=== PATIENT | male | born 1985 | race Caucasian/White ===

== ENCOUNTER 2019-03-10 16:55 | Emergency (ER) | payer MEDICAID, OTHER, SELFPAY ==
[2019-03-10] MEDS ORDERED: Vibramycin 100 MG PO ONE (17:20)
[2019-03-10] MEDS ORDERED: Vibramycin 100 MG ONE (17:23)
--- NOTE | 2019-03-10 17:26 | ERPHSYRPT ---
- History of Present Illness Time Seen by Provider: 03/10/19 17:21 Source: patient Exam Limitations: no limitations Patient Subjective Stated Complaint: Pt states "I do not know if I have a dental infection or an infected sinus. My right side of my face is swollen." Triage Nursing Assessment: Pt presnted to the ed and placed in room 6. Pt ambulates with an upright steady gait, able to speak in clear full sentences. Pt in no apparent respiratory distress. Swelling noted to right cheek. pt teeth has several dental carries. Physician History: 33-year-old white male with history of hiradenitis arrives with complaint of swelling in her right maxillary area x3 days. He states that he feels like the swelling is improving but he feels like he is starting to run a temperature because he has chills at work. Has no vomiting. Patient does have a history of extremely poor dentition. Past medical history patient has had hiradinitis, history of C. difficile in the past. Past surgical history anterior cruciate ligament repair Social history occasional alcohol Timing/Duration: day(s) (3 days) Severity: moderate Modifying Factors: Improves With: nothing Associated Symptoms: chills, rash (right maxillary swelling), No nausea, No vomiting, No abdominal pain, No shortness of breath, No heartburn, No diaphoresis, No cough, No chest pain, No fever, No headaches, No loss of appetite, No malaise, No syncope, No seizure, No weakness Allergies/Adverse Reactions: No Known Drug Allergies Allergy (Verified 03/10/19 17:06) Hx Tetanus, Diphtheria Vaccination/Date Given: Yes Hx Influenza Vaccination/Date Given: No Hx Pneumococcal Vaccination/Date Given: No Immunizations Up to Date: Yes - Review of Systems Constitutional: Chills, No Fever Eyes: No Symptoms Ears, Nose, & Throat: No Symptoms, Mouth Pain (right maxillary swelling), Mouth Swelling (right maxillary swelling), No Ear Pain, No Ear Discharge, No Hearing Changes, No Tinnitus, No Nose Pain, No Nose Congestion, No Nose Discharge, No Sinus Drainage, No Throat Pain, No Throat Swelling, No Hoarse, No Painful Swallowing, No Snoring, No Stridor Respiratory: No Cough, No Dyspnea Cardiac: No Chest Pain, No Edema, No Syncope Abdominal/Gastrointestinal: No Abdominal Pain, No Nausea, No Vomiting, No Diarrhea Genitourinary Symptoms: No Dysuria Musculoskeletal: No Back Pain, No Neck Pain Skin: No Rash Neurological: No Dizziness, No Focal Weakness, No Sensory Changes Psychological: No Symptoms Endocrine: No Symptoms All Other Systems: Reviewed and Negative - Past Medical History Pertinent Past Medical History: Yes Neurological History: No Pertinent History ENT History: No Pertinent History Cardiac History: No Pertinent History Respiratory History: No Pertinent History Endocrine Medical History: No Pertinent History Musculoskeletal History: No Pertinent History GI Medical History: No Pertinent History History: No Pertinent History Psycho-Social History: No Pertinent History Male Reproductive Disorders: No Pertinent History Other Medical History: skin - Past Surgical History Past Surgical History: No Neuro Surgical History: No Pertinent History Cardiac: No Pertinent History Respiratory: No Pertinent History Gastrointestinal: No Pertinent History Genitourinary: No Pertinent History Musculoskeletal: Orthopedic Surgery Male Surgical History: No Pertinent History Other Surgical History: ACL REPAIR - Social History Smoking Status: Former smoker Exposure to second hand smoke: No Alcohol Use: None Drug Use: none Patient Lives Alone: No - Nursing Vital Signs Nursing Vital Signs: Initial Vital Signs Temperature 99.5 F 03/10/19 17:01 Pulse Rate 89 03/10/19 17:01 Respiratory Rate 18 03/10/19 17:01 Blood Pressure 161/104 03/10/19 17:01 O2 Sat by Pulse Oximetry 100 03/10/19 17:01 Pain Scale Pain Intensity 2 - Physical Exam General Appearance: no apparent distress, alert Eye Exam: PERRL/EOMI, eyes nml inspection Ears, Nose, Throat Exam: TMs normal, pharynx normal, other (right maxillary swelling, extremely poor dentition), No pharyngeal erythema Neck Exam: normal inspection, non-tender, supple, full range of motion Respiratory Exam: normal breath sounds, lungs clear, No respiratory distress Cardiovascular Exam: regular rate/rhythm, normal heart sounds, normal peripheral pulses, capillary refill <2 sec Gastrointestinal/Abdomen Exam: soft, normal bowel sounds, No tenderness, No mass Back Exam: normal inspection, normal range of motion, No CVA tenderness, No vertebral tenderness Extremity Exam: normal inspection, normal range of motion, pelvis stable Neurologic Exam: alert, oriented x 3, cooperative, atg java developer II-XII nml as tested, normal mood/affect, nml cerebellar function, nml station & gait, sensation nml, No motor deficits Skin Exam: normal color, warm, dry, No rash Lymphatic Exam: No adenopathy SpO2 Interpretation: normal (100%) SpO2: 100 - Course Nursing assessment & vital signs reviewed: Yes Ordered Tests: Medication Summary Discontinued Medications Generic Name Dose Route Start Last Admin Trade Name Cam PRN Reason Stop Dose Admin Doxycycline Hyclate 100 mg 03/10/19 17:20 03/10/19 17:24 Vibramycin 100 Mg PO 03/10/19 17:21 100 mg STAT ONE Administration Doxycycline Hyclate Confirm 03/10/19 17:23 Vibramycin 100 Mg Administered 03/10/19 17:24 Dose 100 mg .ROUTE .[employer]-MED ONE - Progress Progress: improved Progress Note: 03/10/19 17:24 33-year-old white male arrives with complaint of right maxillary swelling symptoms for 3 days he states that he has extremely poor dentition, He does feel like the swelling is getting better however he states that he feels like he was having some chills today. On physical examination patient has swelling of the right maxillary area combined with extremely poor dentition and appears that he has a dental abscess. The patient appears to be otherwise stable to examination. Unfortunately the patient has had a history of C. difficile in the past. Will go ahead and place patient on doxycycline 100 mg orally twice a day. Instead of clindamycin or amoxicillin. Patient is to place cold packs to the area 24-48 hours. He will be advised to followup with the dentist. - Departure Departure Disposition: Home Clinical Impression: Dental abscess Condition: Fair Critical Care Time: No Additional Instructions: Return home. Cold packs to area 24-48 hours. Doxycycline as prescribed. (Any antibiotics can cause C. difficile but this one is is less likely to cause this and many other antibiotics) Followup with your dentist. Return for acute distress or for severe symptoms. Prescriptions: Doxycycline Hyclate 100 mg [Vibramycin 100 MG] 100 mg PO BID #20 tab
[2019-03-10 17:38] VITALS: BP 158/102; PULSE 86
[2019-03-10 17:42] VITALS: O2SAT 100
== END 2019-03-10 17:49 | disposition home or self-care (01) ==
LOC: ED 16:55
DX: K04.7 Periapical abscess without sinus (principal); K13.79 Other lesions of oral mucosa
CPT/HCPCS: 99283; A9270-GY

== ENCOUNTER 2020-06-04 10:04 | Emergency (ER) | payer BC ==
[2020-06-04] MEDS ORDERED: BABY ASPIRIN 81 MG CHEW PO ONE (10:16)
--- NOTE | 2020-06-04 10:19 | ERPHSYRPT ---
- History of Present Illness Time Seen by Provider: 06/04/20 10:18 Historian: patient Exam Limitations: no limitations Timing/Duration: week(s) (3) Activities at Onset: none Quality: aching, tightness Location: central Chest Pain Radiation: no radiation Severity of Pain-Max: severe Severity of Pain-Current: mild Modifying Factors: Improves With: nothing Associated Symptoms: palpitations Prior Chest Pain/Cardiac Workup: no prior chest pain, no prior cardiac workup Nitro Today/Relief: no nitro taken today Aspirin Treatment Today: provided by ED Body Map: 1 - area of CP Allergies/Adverse Reactions: No Known Drug Allergies Allergy (Verified 06/04/20 10:20) Home Medications: Lisinopril 5 mg [Zestril 5 MG] 5 mg PO DAILY 06/04/20 [History] Hx Tetanus, Diphtheria Vaccination/Date Given: Yes Hx Influenza Vaccination/Date Given: No Hx Pneumococcal Vaccination/Date Given: No - Review of Systems Cardiac: Chest Pain, Palpitations Psychological: Anxiety All Other Systems: Reviewed and Negative - Past Medical History Pertinent Past Medical History: Yes Neurological History: No Pertinent History ENT History: No Pertinent History Cardiac History: No Pertinent History Respiratory History: No Pertinent History Endocrine Medical History: No Pertinent History Musculoskeletal History: No Pertinent History GI Medical History: No Pertinent History History: No Pertinent History Psycho-Social History: No Pertinent History Male Reproductive Disorders: No Pertinent History Other Medical History: skin - Past Surgical History Past Surgical History: No Neuro Surgical History: No Pertinent History Cardiac: No Pertinent History Respiratory: No Pertinent History Gastrointestinal: No Pertinent History Genitourinary: No Pertinent History Musculoskeletal: Orthopedic Surgery Male Surgical History: No Pertinent History Other Surgical History: ACL REPAIR - Social History Smoking Status: Former smoker Exposure to second hand smoke: No Alcohol Use: None Drug Use: none Patient Lives Alone: No - Nursing Vital Signs Nursing Vital Signs: Initial Vital Signs Temperature 99.0 F 06/04/20 10:11 Pulse Rate 88 06/04/20 10:11 Respiratory Rate 16 06/04/20 10:11 Blood Pressure 175/101 06/04/20 10:11 O2 Sat by Pulse Oximetry 100 06/04/20 10:11 Pain Scale Pain Intensity 1 - Physical Exam General Appearance: mild distress Eye Exam: PERRL/EOMI Ears, Nose, Throat Exam: normal ENT inspection Neck Exam: normal inspection Respiratory Exam: normal breath sounds Cardiovascular Exam: regular rate/rhythm, normal heart sounds Gastrointestinal/Abdomen Exam: soft, normal bowel sounds Back Exam: normal inspection, normal range of motion Extremity Exam: normal inspection, normal range of motion Neurologic Exam: alert, oriented x 3, cooperative Skin Exam: normal color, warm Comments: 06/04/20 10:43 Anxious, a bit tearful - Course EKG Interpreted by Me: Sinus Rhythm, Non-specific ST Changes (inverted T wave lead III) Ordered Tests: Active Orders 24 hr Category Date Time Status Staff Internist Office Based Only STAT Care 06/04/20 10:17 Active EKG-ER Only STAT Care 06/04/20 10:16 Active IV Insertion STAT Care 06/04/20 10:16 Active Oxygen-ED Only Nasal Cannula 2 lpm Care 06/04/20 10:16 Active Pulse Oximetry (ED) STAT Care 06/04/20 10:16 Active CHEST 1 VIEW (PORTABLE) Stat Exams 06/04/20 10:17 Completed CBC W DIFF Stat Lab 06/04/20 10:15 Completed CMP Stat Lab 06/04/20 10:15 Completed D-DIMER QUANTITATIVE Stat Lab 06/04/20 10:15 Completed POCT GLUCOSE Stat Lab 06/04/20 10:23 Completed PROTIME WITH INR Stat Lab 06/04/20 10:15 Completed PTT Stat Lab 06/04/20 10:15 Completed TROPONIN Q3H Lab 06/04/20 10:15 Completed TROPONIN Q3H Lab 06/04/20 13:30 Ordered Medication Summary Discontinued Medications Generic Name Dose Route Start Last Admin Trade Name Freq PRN Reason Stop Dose Admin Aspirin 324 mg 06/04/20 10:16 06/04/20 10:22 Baby Aspirin 81 Mg Chew PO 06/04/20 10:17 324 mg STAT ONE Administration Lab/Rad Data: Laboratory Result Diagrams 06/04/20 10:15 06/04/20 10:15 Laboratory Results 06/04/20 06/04/20 06/04/20 Range/Units 10:23 10:15 10:15 WBC (4.0-10.5) K/mm3 RBC (4.1-5.6) M/mm3 Hgb (12.5-18.0) gm/dl Hct (42-50) % MCV (78-100) fl MCH (26-32) pg MCHC (32-36) g/dl RDW (11.5-14.0) % Plt Count (150-450) K/mm3 MPV (7.5-11.0) fl Gran % (36.0-66.0) % Eos # (Auto) (0-0.5) Absolute Lymphs (auto) (1.0-4.6) Absolute Monos (auto) (0.0-1.3) Lymphocytes % (24.0-44.0) % Monocytes % (0.0-12.0) % Eosinophils % (0.00-5.0) % Basophils % (0.0-0.4) % Absolute Granulocytes (1.4-6.9) Basophils # (0-0.4) PT 12.1 (8.83-12.87) SECONDS INR 1.07 (0.8-3.0) APTT 30.8 (24.1-36.1) SECONDS D-Dimer < 215 L (215-500) ng/mL Sodium (137-145) mmol/L Potassium (3.5-5.1) mmol/L Chloride (98-107) mmol/L Carbon Dioxide (22-30) mmol/L Anion Gap (5-15) MEQ/L BUN (9-20) mg/dL Creatinine (0.66-1.25) mg/dL Estimated GFR ML/MIN Glucose (74-106) mg/dL POC Glucometer 118 H (74 to 106) mg/dL Calcium (8.4-10.2) mg/dL Total Bilirubin (0.2-1.3) mg/dL AST (17-59) U/L ALT (0-50) U/L Alkaline Phosphatase (38-126) U/L Troponin I < 0.012 (0.000-0.034) ng/mL Serum Total Protein (6.3-8.2) g/dL Albumin (3.5-5.0) g/dL 06/04/20 06/04/20 Range/Units 10:15 10:15 WBC 7.7 (4.0-10.5) K/mm3 RBC 5.48 (4.1-5.6) M/mm3 Hgb 16.3 (12.5-18.0) gm/dl Hct 47.9 (42-50) % MCV 87.4 (78-100) fl MCH 29.7 (26-32) pg MCHC 34.0 (32-36) g/dl RDW 13.0 (11.5-14.0) % Plt Count 257 (150-450) K/mm3 MPV 9.9 (7.5-11.0) fl Gran % 66.6 H (36.0-66.0) % Eos # (Auto) 0.09 (0-0.5) Absolute Lymphs (auto) 1.68 (1.0-4.6) Absolute Monos (auto) 0.75 (0.0-1.3) Lymphocytes % 21.9 L (24.0-44.0) % Monocytes % 9.8 (0.0-12.0) % Eosinophils % 1.2 (0.00-5.0) % Basophils % 0.5 (0.0-0.4) % Absolute Granulocytes 5.11 (1.4-6.9) Basophils # 0.04 (0-0.4) PT (8.83-12.87) SECONDS INR (0.8-3.0) APTT (24.1-36.1) SECONDS D-Dimer (215-500) ng/mL Sodium 136 L (137-145) mmol/L Potassium 4.2 (3.5-5.1) mmol/L Chloride 100 (98-107) mmol/L Carbon Dioxide 27 (22-30) mmol/L Anion Gap 13.1 (5-15) MEQ/L BUN 15 (9-20) mg/dL Creatinine 0.99 (0.66-1.25) mg/dL Estimated GFR > 60.0 ML/MIN Glucose 121 H (74-106) mg/dL POC Glucometer (74 to 106) mg/dL Calcium 9.8 (8.4-10.2) mg/dL Total Bilirubin 0.70 (0.2-1.3) mg/dL AST 26 (17-59) U/L ALT 27 (0-50) U/L Alkaline Phosphatase 83 (38-126) U/L Troponin I (0.000-0.034) ng/mL Serum Total Protein 8.7 H (6.3-8.2) g/dL Albumin 5.0 (3.5-5.0) g/dL - Progress Progress: improved Air Movement: good Progress Note: 06/04/20 11:56 PT given ASA. No other meds given. CP resolved. Most likely anxiety/stress reaction. Minimal risk factors. HEART score is 1. Very low risk. DC home for outpatient follow up. Consider EST. Pt agreed. Blood Culture(s) Obtained: No Antibiotics given: No Counseled pt/family regarding: lab results, diagnosis, need for follow-up, rad results, smoking cessation - Departure Departure Disposition: Home Clinical Impression: Chest pain, Anxiety Condition: Stable Critical Care Time: No Referrals: DOCTOR,NO FAMILY [NON-STAFF PHY W/O PRIVILEGES] - Instructions: Chest Pain (DC) Additional Instructions: Monitor closely. Follow up with PCP for recheck and further care. Return to ER if worse.
[2020-06-04 10:34] LABS: INR 1.07 (0.8-3.0); PROTIME 12.1 SECONDS (8.83-12.87)
[2020-06-04 10:36] LABS: Absolute Neutrophil Ct (ANC) 5.11 (1.4-6.9); BASOPHIL % 0.5 % (0.0-0.4); Basophil (Absolute #) 0.04 (0-0.4); Eosinophil % 1.2 % (0.00-5.0); Eosinophil (Absolute #) 0.09 (0-0.5); Hematocrit 47.9 % (42-50); Hemoglobin 16.3 gm/dl (12.5-18.0); Lymphocyte (Absolute #) 1.68 (1.0-4.6); Lymphocytes % 21.9 % (24.0-44.0); Mean Cell Volume 87.4 fl (78-100); Mean Corpuscular Hemoglobin 29.7 pg (26-32); Mean Platelet Volume 9.9 fl (7.5-11.0); Monocyte (Absolute #) 0.75 (0.0-1.3); Monocytes % 9.8 % (0.0-12.0); Neutrophil % 66.6 % (36.0-66.0); PTT 30.8 SECONDS (24.1-36.1); Platelet Count 257 K/mm3 (150-450); Red Blood Count 5.48 M/mm3 (4.1-5.6); White Blood Count 7.7 K/mm3 (4.0-10.5)
[2020-06-04 10:38] LABS: ALKALINE PHOSPHATASE 83 U/L (38-126); ANION GAP 13.1 MEQ/L (5-15); BLOOD UREA NITROGEN 15 mg/dL (9-20); CHLORIDE 100 mmol/L (98-107); Calcium 9.8 mg/dL (8.4-10.2); Carbon Dioxide 27 mmol/L (22-30); Creatinine 1 0.99 mg/dL (0.66-1.25); EST GLOMERULAR FILTRATION RATE > 60.0 ML/MIN; Glucose 121 mg/dL (74-106); Potassium 4.2 mmol/L (3.5-5.1); SGOT/AST 26 U/L (17-59); SGPT/ALT 27 U/L (0-50); SODIUM 136 mmol/L (137-145); Total Protein 8.7 g/dL (6.3-8.2)
--- NOTE | 2020-06-04 10:46 | XRAY ---
Indication: Chest pain. Comparison: August 02, 2016. Portable chest again demonstrates normal heart, lungs, and bony thorax.
[2020-06-04 10:51] LABS: D-DIMER QUANTITATIVE < 215 ng/mL (215-500)
[2020-06-04 11:37] VITALS: BP 125/83; PULSE 84; O2SAT 96
== END 2020-06-04 12:17 | disposition home or self-care (01) ==
LOC: ED 10:04
DX: R07.9 Chest pain, unspecified (principal)
CPT/HCPCS: 36000; 36415; 71045; 80053; 82962; 84484; 85025; 85379; 85610; 85730; 93005; 93041; 94760; 99284; A9270-GY